=== PATIENT | male | born 1950 | race Caucasian/White ===

== ENCOUNTER → 2019-10-22 | Outpatient (REF) | payer MEDICARE, OTHER ==
[~2019-10-22] MED LIST: ATOR1TAB21 PO; CIPR-249 PO; FLAG500T PO; LIPI20TA PO; TYLE325T5 PO
== END ==
LOC: M LAB REF 10:06
PROVIDERS: ATTEND Physician Assistant
DX: N30.01 Acute cystitis with hematuria (principal)

== ENCOUNTER 2019-11-24 23:42 | Emergency (ER) | payer MEDICARE, OTHER ==
[~2019-11-24] VITALS: Ht 177.8 cm; Wt 77.3 kg
[2019-11-24] MEDS ORDERED: SULF1TAB93 PO (23:46)
[2019-11-25] MEDS ORDERED: ACETAMINOPHEN 325 MG TAB PO ONE (00:15)
[2019-11-25 00:43] LABS: INFLUENZA A AMPLIFICATION NEGATIVE (NEGATIVE); INFLUENZA B AMPLIFICATION NEGATIVE (NEGATIVE)
[2019-11-25 02:11] LABS: HEMATOCRIT 42.3 % (42.0-52.0); HEMOGLOBIN 13.8 g/dl (13.5-17.5); MEAN CORPUSCULAR HGB CONC 32.6 g/dl (32.0-36.5); MEAN CORPUSCULAR VOLUME 95.1 fl (80.0-96.0); PLATELET COUNT, AUTOMATED 137 10^3/uL (150-450); RED BLOOD COUNT 4.45 10^6/uL (4.30-6.10); WHITE BLOOD COUNT 5.8 10^3/uL (4.0-10.0)
[2019-11-25 02:45] LABS: ALBUMIN 3.6 GM/DL (3.2-5.2); BILIRUBIN,DIRECT 0.1 MG/DL (0.0-0.2); BILIRUBIN,TOTAL 0.3 MG/DL (0.2-1.0); TOTAL PROTEIN 6.7 GM/DL (6.4-8.2)
[2019-11-25] MEDS ORDERED: NS 1,000 ML IV ONE (02:45)
[2019-11-25 03:01] VITALS: BP 100/55
== END 2019-11-25 03:18 | disposition home or self-care (01) ==
LOC: M ED 23:42
DX: R50.9 Fever, unspecified (principal); R53.81 Other malaise; R51 Headache; R63.8 Other symptoms and signs concerning food and fluid intake; N39.0 Urinary tract infection, site not specified; E78.5 Hyperlipidemia, unspecified; Z87.891 Personal history of nicotine dependence; Z79.899 Other long term (current) drug therapy

== ENCOUNTER → 2020-10-01 | Outpatient (CLI) | payer SELFPAY ==
[~2020-10-01] MED LIST changes: +SULF1TAB93 PO
== END ==
LOC: M LABSMTC 09:52
PROVIDERS: ATTEND Pediatrics
DX: Z20.822 Contact with and (suspected) exposure to COVID-19 (principal)

== ENCOUNTER → 2022-08-31 | Outpatient (CLI) | payer MEDICARE, BC, OTHER ==
[~2022-08-31] MED LIST changes: +BACTDSTA PO; -SULF1TAB93 PO
== END ==
LOC: M RAD 12:13
PROVIDERS: ATTEND Internal Medicine
DX: I65.23 Occlusion and stenosis of bilateral carotid arteries (principal)

== ENCOUNTER 2025-08-04 06:51 | Day surgery (SDC) | payer MEDICARE, BC ==
[~2025-08-04] VITALS: Ht 177.8 cm; Wt 77.1 kg
[~2025-08-04 06:51] MED LIST changes: +CYAN500T14 PO; +KRIL1000 PO; +ROSU5TAB49 PO; +SAW500CA7 PO; +THERTAB52 PO; +VITA100093 PO; +[UNRECOGNIZED DRUG - CODE] PO; +[UNRECOGNIZED DRUG - OTHER] PO
[2025-08-04 08:26] VITALS: TEMP 97.6
[2025-08-04 08:45] VITALS: BP 106/59; O2SAT 97
== END 2025-08-04 08:51 | disposition home or self-care (01) ==
LOC: M OPP 06:51
PROVIDERS: ATTEND Internal Medicine Gastroenterology
DX: Z12.11 Encounter for screening for malignant neoplasm of colon (principal); K63.5 Polyp of colon; K57.30 Diverticulosis of large intestine without perforation or abscess without bleeding; G47.30 Sleep apnea, unspecified; Z79.899 Other long term (current) drug therapy; Z87.891 Personal history of nicotine dependence